=== PATIENT | male | born 1980 | race Caucasian/White ===

== ENCOUNTER 2019-02-04 07:49 | Emergency (ER) | payer BC ==
--- NOTE | 2019-02-04 08:20 | UC ---
Shoulder Pain HPI - HPI Summary HPI Summary: 38-year-old male presents with complaints of left shoulder pain. States he has been having intermittent pain in the posterior left shoulder that radiates up into his neck and down below his left arm pit for approximately one month. States pain was more severe this morning. Describes pain as sharp. States pain worsens if he turns his head to the left, left arm hang down, and with adduction. Pain improves if he holds his arm over his head. He has taken ibuprofen 800 mg with minimal relief in symptoms. States he has had some occasional numbness and tingling in his distal radial forearm and in his thumb and index finger. No known injury. Denies fever, chills, rash, chest pain, shortness of breath, abdominal pain, nausea, vomiting, or extremity weakness. - History of Current Complaint Chief Complaint: UCUpperExtremity Stated Complaint: LEFT SHOULDER PAIN Time Seen by Provider: 02/04/19 08:01 Hx Obtained From: Patient Pain Intensity: 10 - Allergies/Home Medications Allergies/Adverse Reactions: Allergies Allergy/AdvReac Type Severity Reaction Status Date / Time No Known Allergies Allergy Verified 02/04/19 08:09 Home Medications: Home Medications Ibuprofen 800 mg PO Q6HR PRN 02/04/19 [History Confirmed 02/04/19] PMH/Surg Hx/FS Hx/Imm Hx Previously Healthy: Yes - Denies significant PMH - Surgical History Surgical History: None - Family History Known Family History: Positive: Non-Contributory - Social History Occupation: Employed Full-time Lives: With Family Alcohol Use: None Substance Use Type: None Smoking Status (MU): Never Smoked Tobacco Review of Systems All Other Systems Reviewed And Are Negative: Yes Constitutional: Negative: Fever, Chills Skin: Negative: Rash, Bruising Respiratory: Negative: Shortness Of Breath, Cough Cardiovascular: Negative: Palpitations, Chest Pain Gastrointestinal: Negative: Abdominal Pain, Vomiting, Nausea Genitourinary: Positive: Negative Musculoskeletal: Positive: Other: - See HPI Neurological: Positive: Paresthesia. Negative: Weakness Is Patient Immunocompromised?: No Physical Exam - Summary Physical Exam Summary: GENERAL APPEARANCE: Well developed, well nourished, alert and cooperative, and appears to be in no acute distress. NECK: Neck supple, non-tender. Full ROM. CARDIAC: Normal S1 and S2. No S3, S4 or murmurs. Rhythm is regular. There is no peripheral edema, cyanosis or pallor. Extremities are warm and well perfused. Capillary refill is less than 2 seconds. Peripheral pulses intact. LUNGS: Clear to auscultation without rales, rhonchi, wheezing or diminished breath sounds. ABDOMEN: Positive bowel sounds. Soft, nondistended, nontender. No guarding or rebound. No masses or hepatosplenomegally. MUSKULOSKELETAL: Normal muscular development. Normal gait. BACK:No spinal deformity or tenderness, decreased range of motion or muscular spasm. EXTREMITIES: Tenderness over the posterior left shoulder without gross deformity , ecchymosis, erythema, or lesions. Full ROM. Pain with adduction and external rotation. NEUROLOGICAL: Strength and sensation symmetric and intact to bilateral upper extremities. SKIN: Skin normal color, texture and turgor with no lesions or eruptions. Triage Information Reviewed: Yes Vital Signs: Initial Vital Signs Temp 97.6 F 02/04/19 08:05 Pulse 93 02/04/19 08:05 Resp 16 02/04/19 08:05 BP 153/88 02/04/19 08:05 Pulse Ox 97 02/04/19 08:05 Vital Signs Reviewed: Yes Shoulder Course/Dx - Course Course Of Treatment: 38-year-old male presents with complaints of left shoulder pain. States he has been having intermittent pain in the posterior left shoulder that radiates up into his neck and down below his left arm pit for approximately one month. States pain was more severe this morning. Describes pain as sharp. States pain worsens if he turns his head to the left, left arm hang down, and with adduction. Pain improves if he holds his arm over his head. He has taken ibuprofen 800 mg with minimal relief in symptoms. States he has had some occasional numbness and tingling in his distal radial forearm and in his thumb and index finger. No known injury. Denies fever, chills, rash, chest pain, shortness of breath, abdominal pain, nausea, vomiting, or extremity weakness. Afebrile. Hypertensive otherwise vital signs stable. Patient had tenderness over the posterior left shoulder without gross deformity, ecchymosis, erythema, or lesions. Full ROM. Pain with adduction and external rotation. Strength and sensation were intact. Remainder of exam was unremarkable. Discussed with the patient that without a history of injury that x-rays were of limited benefit at this time and that his pain was most likely musculoskeletal in origin versus a nerve impingement syndrome. Recommending conservative treatment at this time including NSAIDs, muscle relaxant, and heat therapy. He is to follow-up with orthopedic surgery in 5-7 days if symptoms are not improving. Anticipatory guidance and warning symptoms were reviewed with the patient. Verbalizes understanding and agrees with plan of care. - Differential Dx/Diagnosis Differential Diagnosis/HQI/PQRI: Arthritis, Bursitis, Rotator Cuff Injury, Sprain, Thoracic Outlet Syndrome Provider Diagnosis: Acute pain of left shoulder Discharge ED - Sign-Out/Discharge Documenting (check all that apply): Patient Departure All imaging exams completed and their final reports reviewed: No Studies - Discharge Plan Condition: Stable Disposition: HOME Prescriptions: Cyclobenzaprine HCl 10 mg PO Q8HR PRN #21 tablet PRN Reason: Spasms Patient Education Materials: Shoulder Pain (ED) Referrals: [facility] [place] [facility] REFERRAL [Outside] No Primary Care Phys,NOPCP [Primary Care Provider] - Jesse Florez MD [Medical Doctor] - (Follow up in 5-7 days if no improvement. Call for appointment.) Additional Instructions: Rest the shoulder as much as possible. Avoid heavy lifting or activities that cause pain. Apply heate to the affected area for 15-20 minutes at least 4 times a day to help with the pain and to help relax the muscles. Take ibuprofen (Advil, Motrin) 600-800 mg every 8 hours with food as needed for pain. Take cyclobenzaprine 10 mg 1 tab every 8 hours as needed for severe pain or spasm. This medication will cause drowsiness. Do not drive or operate machinery while taking this medication. Follow up with orthopedic surgery in 5-7 days if symptoms do not improve. Call for appointment. Your blood pressure was elevated in the clinic today. It is recommended that you have this rechecked by a primary care provider within 4 weeks. You have been given the contact information for the [facility] physician referral service if you need assistance with establishing with a provider. Seek immediate medical attention if you have severe pain not managed with pain medication, you lose function of the arm, develop persistent numbness or tingling in the arm, hand, or fingers, develop chest pain, shortness of breath, severe abdominal pain, persistent vomiting, or have any worsening of symptoms. - Billing Disposition and Condition Condition: STABLE Disposition: Home
== END 2019-02-04 08:44 | disposition home or self-care (01) ==
LOC: UCCORT 07:49
DX: M25.512 Pain in left shoulder (principal)
CPT/HCPCS: 99202; G0463